=== PATIENT | male | born 1940 | race Caucasian/White ===

== ENCOUNTER 2016-05-25 18:01 | Emergency (ER) | payer MEDICARE, OTHER ==
[~2016-05-25 18:01] MED LIST: *UNABLE1; AMARYL2 PO; AMARYL4 PO; ASAB PO; CEFT5 PO; CINNAMON PO; CITRUCELSF; CITRUCELSF PO; COREG3 PO; CRESTOR40 MG PO; CRESTOR5 MG PO; CYANO1000T PO; DYAZIDE1 CAP PO; ELIQUIS 5 MG TAB5 MG PO; FISH OIL1200 MG PO; FISH-EPA1000 MG PO; FLAG500TAB PO; FLOMAX4 PO; FOLIC PO; JANUMET XR 50-1 EACH PO; JANUMET1 TA1 PO; JANUMET1 TAB PO; KLONO1 PO; KLONO5 PO; LANTUS SC; LEVAQUIN750 MG PO; LEVOTHYROXIN50 MCG PO; LORT7 PO; LORTAB 5 PO; LORTAB PO; LORTAB10 PO; MAG-SR535 MG PO; MAGNESIUM PO; MAX25 PO; MEVACOR PO; MTX2.5 PO; NEUR100 PO; NEUR300 PO; NORV5 PO; OXYCOD PO; P1 PO; P10 PO; PERCOCET1 TA4 PO; PLAQ200B PO; PLAVIX PO; PRILO PO; PRIN5 PO; REST15 PO; SEPTRA DS1 TAB PO; SYN.05 PO; ULORIC40 MG PO; VALERIAN ROOT PO; VITAMIN B-121000 MC1 PO; VITAMIN B-121000 MC1 SL; VITAMIN B12 GUMMY PO; VITAMIN C OTC PO; VITAMIN D1000 UNI1 PO; VITAMIN D31000 UNIT PO; VITC500 PO; Z100 PO; ZIAC10 PO; ZOCOR20 PO; [UNRECOGNIZED DRUG - OTHER] PO; [UNRECOGNIZED DRUG - OTHER] PO; [UNRECOGNIZED DRUG - OTHER] PO; [UNRECOGNIZED DRUG - REMARK]; [UNRECOGNIZED DRUG - REMARK] PO
[2016-05-25 18:31] LABS: BASOPHILS 0.2 %; BASOPHILS ABSOLUTE 0.01 10/3/uL (0.0-0.16); EOSINOPHILS 0.2 %; EOSINOPHILS ABSOLUTE 0.01 10/3/uL (0.0-0.53); HEMOGLOBIN 12.8 g/dL (13.6-17.8); LYMPHOCYTES 20.5 %; LYMPHOCYTES ABSOLUTE 1.22 10/3/uL (0.67-4.30); MEAN CORPUS HGB CONC 33.2 g/dL (32.0-36.0); MEAN CORPUSCULAR HEMOGLOB 33.8 pg (26.0-34.0); MEAN CORPUSCULAR VOLUME 101.6 fL (80-100); MEAN PLATELET VOLUME 10.6 fL (9.2-13.0); MONOCYTES 6.4 %; MONOCYTES ABSOLUTE 0.38 10/3/uL (0.21-1.20); NEUTROPHILS 72.7 %; NEUTROPHILS ABSOLUTE 4.34 10/3/uL (2.02-8.40); RBC DISTRIBUTION WIDTH 15.4 % (12.0-16.0); RED CELL COUNT 3.79 10/6/uL (4.7-6.1)
[2016-05-25 18:40] LABS: HEMATOCRIT 38.5 % (40.0-51.0); MANUAL DIFF NO %; PLATELET COUNT 218 10/3/uL (150-400)
[2016-05-25 18:41] LABS: INTERNATIONAL NORMAL RATI 1.3 UNITS (-); PROTIME (NOT ORD) 15.8 SEC (12.0-14.5)
[2016-05-25 18:46] LABS: A/G RATIO 0.8 (0.7-1.9); ALBUMIN 3.1 G/DL (3.5-5.0); ALKALINE PHOSPHATASE 61 U/L (45-117); CALCIUM, SERUM 8.8 MG/DL (8.5-10.4); CHLORIDE, SERUM 107 MMOL/L (96-112); CO2 (CARBON DIOXIDE) 27 MMOL/L (24-34); CREATININE 1.35 MG/DL (0.70-1.30); GFR AFRICAN AMERICAN 58 ML/MIN (>=60); GFR NON AFRICAN AMERICAN 50 ML/MIN (>=60); GLOBULIN 4.1 G/DL (2.5-4.1); POTASSIUM, SERUM 4.5 MMOL/L (3.5-5.3); SGPT(ALT) 19 U/L (5-65); SODIUM, SERUM 142 MMOL/L (135-148); TOTAL PROTEIN 7.2 G/DL (6.0-8.5)
[2016-05-25 18:47] LABS: BUN (BLOOD UREA NITROGEN) 18 MG/DL (6-23); GLUCOSE, SERUM 216 MG/DL (60-99); SGOT(AST) 22 U/L (5-40); TOTAL BILIRUBIN 0.8 MG/DL (0-1.2)
[2016-05-26 00:12] LABS: CPK 44 U/L (0-200)
[2016-11-14] MEDS ORDERED: KLONO1 PO (15:13)
[2016-11-14] MEDS ORDERED: SACU1TAB7 PO (15:14)
[2016-11-14] MEDS ORDERED: VITAMIN B-121000 MC1 SL (15:15)
[2016-11-14] MEDS ORDERED: VITAMIN C (15:16)
[2016-11-14] MEDS ORDERED: Z100 PO (15:17)
[2016-11-14] MEDS ORDERED: CALC/MAG/ZINC (15:20)
== END 2016-05-26 01:50 | disposition home or self-care (01) ==
LOC: ER 18:01
PROVIDERS: Nurse Practitioner
DX: M48.06 Spinal stenosis, lumbar region (principal); N17.9 Acute kidney failure, unspecified; R53.1 Weakness; I10 Essential (primary) hypertension; I50.9 Heart failure, unspecified; I48.91 Unspecified atrial fibrillation; E11.9 Type 2 diabetes mellitus without complications; Z79.899 Other long term (current) drug therapy; W19.XXXA Unspecified fall, initial encounter
CPT/HCPCS: 80053; 82550; 85025; 85610; 85730; 93005; 99285